=== PATIENT | female | born 1975 | race Two or more races ===

== ENCOUNTER → 2024-10-07 | Outpatient (CLI) | payer MEDICAID, SELFPAY ==
--- NOTE | 2024-10-07 12:12 | XR_ITS ---
Examination: Abdomen sonogram, complete Date and time of exam: October 07, 2024 1225 hours INDICATIONS: Epigastric pain and nausea beginning one month ago. Technique: Multiple real-time grayscale transabdominal sonographic images of the abdomen have been obtained. Findings: Absent gallbladder Normal common bile duct 0.4 cm Pancreatic head 2.7 cm Aorta not enlarged. Liver 19.8 cm fatty infiltration Normal hepatopedal portal venous flow Patent IVC Right kidney 11.2 cm cortex 1.4 cm Left kidney 13.3 cm cortex 2.0 cm Spleen 10.5 cm IMPRESSION: Normal common bile duct Moderate hepatomegaly with fatty infiltration throughout the liver no focal liver lesions
--- NOTE | 2024-10-07 12:13 | XR_ITS ---
Examination: Pelvic ultrasound, transabdominal, complete Technique: Transabdominal ultrasound of the pelvis performed using grayscale imaging Date and time of exam: October 07, 2024 1220 hours INDICATIONS: Pelvic pain beginning one month ago FINDINGS: Absent uterus Right ovary obscured by bowel gas Left ovary 2.5 cm arterial flow IMPRESSION: Limited study Normal left ovary
--- NOTE | 2024-10-07 12:14 | XR_ITS ---
Examination: Breast ultrasound complete, bilateral Date and time of exam: October 07, 2024 1234 hours INDICATIONS: Burning sensation in the left breast nipple and pain discharge 3 weeks Technique: Real-time grayscale ultrasonographic imaging bilateral breasts, including all 4 quadrants as well as nipple retroareolar and axillary regions. Findings: Sonographic images right breast 1:00 cyst 7 x 5 mm 3:00 cyst 7 x 3 mm No solid nodules Sonographic images left breast Retroareolar cyst, 3 x 3 mm, 4 x 4 millimeter, no solid nodules IMPRESSION: BI-RADS Category 2: Benign findings
--- NOTE | 2024-10-07 12:51 | XR_ITS ---
Examination: Diagnostic digital mammography, bilateral Computer aided detection 3-D breast Tomosynthesis, bilateral Date and time of exam: October 07, 2024 1258 hours INDICATIONS: Burning sensation left breast and discharge 3 weeks Technique: Nonmagnified MLO, CC views of the breasts to been obtained, reconstructed from 3-D Tomosynthesis images. R2 computer aided detection program utilized for evaluation of suspicious masses and/or abnormal calcifications. 3-D Tomosynthesis images obtained. Findings: The breasts are heterogeneously dense, which may obscure small masses 8 mm focal asymmetry upper outer right breast posterior depth Impression: BI-RADS Category 0: Incomplete: Need additional imaging evaluation Recommend follow-up spot tomographic views of 8 mm focal asymmetry upper outer right breast posterior depth.
== END | disposition home or self-care (01) ==
DX: N64.89 Other specified disorders of breast (principal); N60.01 Solitary cyst of right breast; N60.02 Solitary cyst of left breast; K76.0 Fatty (change of) liver, not elsewhere classified; R10.2 Pelvic and perineal pain
CPT/HCPCS: 76641; 76700; 76856; 77062; 77066; G0279

== ENCOUNTER → 2024-10-29 | Outpatient (CLI) | payer MEDICAID, SELFPAY ==
--- NOTE | 2024-10-29 13:15 | XR_ITS ---
Examination: Diagnostic digital mammography, bilateral Computer aided detection 3-D breast Tomosynthesis, bilateral Date and time of exam: October 29, 2024, 12:55 PM INDICATIONS: Mammogram October 07, 2024 8 mm focal asymmetry outer right breast Technique: Nonmagnified MLO, CC views of the breasts to been obtained, reconstructed from 3-D Tomosynthesis images. R2 computer aided detection program utilized for evaluation of suspicious masses and/or abnormal calcifications. 3-D Tomosynthesis images obtained. Findings: The breast is heterogeneously dense, which may obscure small masses No suspicious nodule is depicted on the spot compression views Impression: BI-RADS Category 2: Benign findings Return to yearly follow-up mammography.
== END | disposition home or self-care (01) ==
LOC: CDIM 12:44
PROVIDERS: Referring Provider Physician Assistant; Visit Provider Physician Assistant
DX: R92.333 Mammographic heterogeneous density, bilateral breasts (principal)
CPT/HCPCS: 77062; 77066; G0279